=== PATIENT | female | born 1970 | race Caucasian/White ===

== ENCOUNTER 2017-02-26 20:11 | Emergency (ER) | payer OTHER ==
[2017-02-26] MEDS ORDERED: IBUPROFEN 600 MG TABLET PO ONE (21:02)
[2017-02-26] MEDS ORDERED: IBUPROFEN 600 MG TABLET ONE (21:05)
--- NOTE | 2017-02-26 21:06 | ERNOTE ---
Trauma/Assault HPI - Narrative Date of Service: 02/26/17 - General Stated Complaint: FALL Time Seen by Provider: 02/26/17 20:48 Source: patient, RN notes reviewed Exam Limitations: no limitations - Immun/Allergies/Home Medications Immunizations: IMMUNIZATION HX Immunizations Up to Date Yes History of Influenza Vaccine No Allergies/Adverse Reactions: Allergies acetaminophen [From Percocet] Adverse Reaction (Mild, Verified 02/26/17 20:22) Nausea levofloxacin [From Levaquin] Adverse Reaction (Mild, Verified 02/26/17 20:22) Nausea oxycodone HCl [From Percocet] Adverse Reaction (Mild, Verified 02/26/17 20:22) Nausea Home Medications: HOME MEDICATIONS Naproxen Sodium [Aleve] 220 mg PO BID PRN 02/10/16 [Last Taken Unknown] - History of Present Illness Date (Duration): 02/26/17 Narrative: 46 year old female presents to the ED for right knee pain due to a fall. She was at work when she tripped on a mat, landing on her right knee. She has increased pain with weight bearing. She denies other injuries. Location Occurred: Reports: work Pain Location: Reports: lower extremity - Right knee Method of Injury: Reports: fall Modifying Factors - (Improves): Reports: rest Modifying Factors - (Worsens): Reports: movement Loss of Consciousness: Reports: no loss of consciousness Review of Systems - Review of Systems Constitutional: Absent: recent illness, fever, malaise EYE: Present: no symptoms reported ENT: Present: no symptoms reported Respiratory: Present: no symptoms reported Cardiology: Absent: chest pain, syncope, edema Gastrointestinal/Abdominal: Absent: nausea, vomiting Genitourinary: Present: no symptoms reported Musculoskeletal: Present: joint pain, joint swelling Skin: Absent: lesions, lumps, change in color Neurological: Absent: dizziness/light-headedness, weakness, numbness, tingling Hematologic/Lymphatic: Absent: easy bruising, easy bleeding Psych: Present: no symptoms reported - Patient's Past Medical History Patient History - Medical: Diabetes Type 2 Patient History - Cardiac/Respiratory: No pertinent hx Patient History - Cancer: No Hx of Cancer Patient History - Surgical Procedures: Cholecystectomy, Patient History - Other: None - Family History Father Family History - Medical: , Diabetes Type 2 Family History - Cardiac/Respiratory: CHF, CVA/Stroke Mother Family History - Medical: , No pertinent hx Family History - Cardiac/Respiratory: Myocardial Infarction - Social History Living Situations: home Abuse History: No History of abuse Psych History: No pertinent hx Smoking Status: Current every day smoker Cigarettes Packs Per Day: 1 Patient requests Smoking Cessation Consult: No Initiate information on Smoking Cessation: No Alcohol Use: none Drug Use: none - Immunizations Immunizations Up to Date: Yes History of Influenza Vaccine: No Physical Exam - Physical Exam General Appearance: Present: wd/wn, alert, no apparent distress Head Exam: Present: normal inspection, no evidence of injury Neck: Present: normal inspection, nontender, supple, full range of motion Respiratory: Present: no respiratory distress, no accessory muscle use Cardiovascular/Chest: Present: normal peripheral pulses Extremity Exam: Present: decreased range of motion - Right knee, joint swelling - Trace at medial aspect of right knee, tender to palpation. Absent: pedal edema, joint redness, extremity edema Neurological Exam: Present: alert, oriented, normal mood/affect, no motor/ sensory deficits Skin Exam: Present: normal color, warm/dry ED Progress - Vital Signs Patient's Vital Signs:: I have reviewed the patient's vital signs. Vital Signs: Vital Signs 02/26/17 20:18 Temperature 37 C Pulse Rate 90 Respiratory 18 Rate Blood Pressure 117/69 O2 Sat by Pulse 95 Oximetry - X-Ray X-Ray #1 X-Ray: knee - Right Interpretation: Interp. by me X-ray Comments: No acute osseous abnormalities noted - Progress/Reassessment Chief Complaint: Fall Progress:: Improved Plan - Plan Plan: ASHLIE wrap to right knee, patient released to go back to work tomorrow without instructions per her request. Departure Clinical Impression: Fall Qualifiers: Encounter type: initial encounter Qualified Code(s): W19.XXXA - Unspecified fall, initial encounter Knee contusion Qualifiers: Encounter type: initial encounter Laterality: right Qualified Code(s): S80.01XA - Contusion of right knee, initial encounter - Departure Disposition: Home self-care Condition: Good Instructions: Contusion, [id number] Additional Instructions: Ice, elevate, ASHLIE wrap for support Ibuprofen 600 mg every 6 hours as needed with food for pain, Can also take Tylenol May return to work tomorrow 11-18-17 without restrictions, follow up as needed Critical Care Time - Critical Care Critical Time Spent:: No
[2017-02-26 22:02] VITALS: BP 121/72
== END 2017-02-26 21:15 | disposition home or self-care (01) ==
LOC: ER 20:11
DX: S80.01XA Contusion of right knee, initial encounter (principal); W18.09XA Striking against other object with subsequent fall, initial encounter; Y93.9 Activity, unspecified; Y92.9 Unspecified place or not applicable; Y99.0 Civilian activity done for income or pay